=== PATIENT | male | born 2000 | race African-American/Black ===

== ENCOUNTER 2021-07-30 02:01 | Emergency (ER) | payer SELFPAY ==
[~2021-07-30] VITALS: Ht 182.9 cm; Wt 127.0 kg
[2021-07-30] MEDS ORDERED: IBUPROFEN 600MG TABLET PO ONE (02:45)
[2021-07-30] MEDS ORDERED: BACITRACIN ZINC OINT UDPKT TOP ONE (03:45)
[2021-07-30 04:01] VITALS: BP 135/69
== END 2021-07-30 04:03 | disposition home or self-care (01) ==
LOC: ER 02:01
DX: S60.221A Contusion of right hand, initial encounter (principal); S60.418A Abrasion of other finger, initial encounter; J45.909 Unspecified asthma, uncomplicated; Y04.0XXA Assault by unarmed brawl or fight, initial encounter; Y93.89 Activity, other specified; Y92.018 Other place in single-family (private) house as the place of occurrence of the external cause
CPT/HCPCS: 73110; 73130; 99284

== ENCOUNTER 2024-07-24 12:51 | Emergency (ER) | payer MEDICAID ==
[~2024-07-24] VITALS: Ht 188 cm; Wt 115.0 kg
[2024-07-24 12:53] VITALS: BP 143/85; PULSE 92; RESP 18; O2SAT 98
[2024-07-24] MEDS ORDERED: IBUP-2028 MT (14:08)
[2024-07-24] MEDS ORDERED: ACET-2708 MT (14:08)
[2024-07-24 14:33] VITALS: TEMP 98
[2024-07-24] MEDS: ACETAMINOPHEN 325MG TABLET PO ONE (14:33)
== END 2024-07-24 14:58 | disposition home or self-care (01) ==
LOC: ER 12:51
DX: S83.92XA Sprain of unspecified site of left knee, initial encounter (principal); J45.909 Unspecified asthma, uncomplicated; W01.0XXA Fall on same level from slipping, tripping and stumbling without subsequent striking against object, initial encounter; Y93.89 Activity, other specified; Y92.89 Other specified places as the place of occurrence of the external cause; Y99.8 Other external cause status
CPT/HCPCS: 29505; 73560; 99283